=== PATIENT | male | born 1945 | race African-American/Black ===

== ENCOUNTER 2019-05-16 11:47 | Emergency (ER) | payer OTHER ==
[2019-05-16 11:59] VITALS: BP 131/65; PULSE 62; TEMP 98.3; BMI 33.5
[2019-05-16] MEDS ORDERED: KETOROLAC TROMETHAMINE 60 MG/2 ML VIAL IM ONE (12:25)
[2019-05-16] MEDS ORDERED: KETOROLAC TROMETHAMINE 60 MG/2 ML VIAL ONE (12:28)
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
== END 2019-05-16 12:37 | disposition home or self-care (01) ==
LOC: JERFT 11:47
PROC: 3E0233Z Introduction of Anti-inflammatory into Muscle, Percutaneous Approach (ICD-10-PCS; principal; 2019-05-16)
DX: S39.012A Strain of muscle, fascia and tendon of lower back, initial encounter (principal); V43.52XA Car driver injured in collision with other type car in traffic accident, initial encounter; Y92.414 Local residential or business street as the place of occurrence of the external cause; Y93.89 Activity, other specified; Y99.8 Other external cause status; I10 Essential (primary) hypertension
CPT/HCPCS: 99281-25

== ENCOUNTER 2020-06-15 11:42 | Emergency (ER) | payer OTHER ==
[2020-06-15 11:52] VITALS: BP 130/68; PULSE 70; TEMP 98.2; BMI 35.1
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
[2020-06-15] MEDS ORDERED: LORazepam 0.5 MG TABLET PO ONE (12:21)
== END 2020-06-15 13:09 | disposition home or self-care (01) ==
LOC: JERFT 11:42
DX: N61.1 Abscess of the breast and nipple (principal)
CPT/HCPCS: 99283-25